=== PATIENT | female | born 1960 | race Caucasian/White ===

== ENCOUNTER 2018-10-26 09:20 | Emergency (ER) | payer MEDICARE ==
[2018-10-26] MEDS: KETOROLAC 30 MG INJ IM (09:41)
== END 2018-10-26 09:45 | disposition home or self-care (01) ==
LOC: E/R 09:20
DX: S23.9XXA Sprain of unspecified parts of thorax, initial encounter (principal); S60.812A Abrasion of left wrist, initial encounter; V43.51XA Car driver injured in collision with sport utility vehicle in traffic accident, initial encounter
CPT/HCPCS: 96372; 99284-25